=== PATIENT | female | born 1985 | race Caucasian/White ===

== ENCOUNTER → 2017-04-29 12:46 | Outpatient (CLI) | payer OTHER, SELFPAY ==
--- NOTE | 2017-04-29 12:52 | US_ITS ---
US OB /maternal detail: INDICATION: ITS.REASON: US OB Complete ORDERING PHYSICIAN: Td Mosqueda MD PATIENT AGE: 32 years TECHNIQUE: ultrasound transabdominal scanning. COMPARISON: No previous relevant studies. FINDINGS: Single viable intrauterine gestation. breech position. Placenta: posterior placenta grade 1. Placenta previa is present. There is some decreased echogenicity along the lower aspect of the placenta and may be related to maternal ortega not demonstrated on the endovaginal exam There is adequate amount fluid. The cervix appears satisfactory. Closed and measuring 4 cm in length. Complete survey performed and was unremarkable on the submitted images as in PACS. No discrete anomalies identified on survey imaging by technologist. Active fetus. Three-vessel cord with satisfactory umbilical cord insertion. 4- chamber heart noted. Survey of brain & ventricles. Face and neck survey unremarkable. Diaphragm and chest views unremarkable. Abdomen: Both kidneys noted and unremarkable. Stomach noted and satisfactory. Spine: Survey of the spine satisfactory with no anomalies identified nor imaged. Both arms and legs noted. Amniotic Fluid: Adequate. Maternal adnexa: No significant findings. Measurements: Average ultrasound age 21w0d. Gestational Age 20w3d. Estimated due date by ultrasound age 0709/09/2017. Estimated weight 421 grams. This is 91 percentile according to last menstrual period BPD = 20w2d OFD = 21w4d HC = 20w2d AC = 22w4d FL = 20w4d Heart Rate = 135 Cerebellum = 22w1d Humerus = 20w4d HC/AC is 1.01 (1.09-1.26). CI is 72% (70-86%). FL/BPD is 72%. FL/AC is 19%. IMPRESSION: There is a single live fetus in the breech presentation with average ultrasound age of 21 weeks and 0 days with an estimated due date of 09/09/2017. No obvious anomalies are evident. The fetus was active. There is posterior placenta with placenta previa.
== END ==
PROVIDERS: PCP Internal Medicine Adolescent Medicine; Visit Provider Nurse Practitioner Obstetrics & Gynecology
DX: Z36.0 Encounter for antenatal screening for chromosomal anomalies (principal)
CPT/HCPCS: 76811; 76830

== ENCOUNTER → 2017-07-30 09:50 | Outpatient (CLI) | payer OTHER, SELFPAY ==
--- NOTE | 2017-07-30 | US_ITS ---
US OB biophysical profile, US OB transvaginal, US OB follow up, US SD Ratio umbilcal artery: Indication: Large for gestational age, follow-up placenta previa ITS.REASON: US OB BPP Growth- LGA ORDERING PHYSICIAN: Harriet Cosme MD PATIENT AGE: 32 years COMPARISON: 04/29/2017 FINDINGS: There is a single live fetus in this presentation. Placenta is posterior and grade 1. No previa evident. The following parameters are obtained: Average ultrasound age is 34w3d . Estimated due date by ultrasound is Due 09/07/2017. Estimated weight is 2526 g. This is 80 percentile based on estimated due date. BPD: 33w4d OFD: 35w3d HC: 34w1d AC: 35w3d FL: 34w4d heart rate: 126 bpm. HC/AC: 0.97 (0.96-1.11) Cephalic index: 76% (70-86%) FL/BPD: 81% (71-87%) FL/AC: 21% (20-24%) Amniotic fluid index: 12 cm Qualitative AFV: 2 breathing movements: 2 Gross body movements: 2 Tone: 2 Biophysical profile score: 8/8 Doppler evaluation of the umbilical artery: SD ratio: 2.4 Resistive index: 0.58 No obvious anomalies evident. Placenta: Posterior and grade 1. No previa. Endovaginal images are performed showing no evidence of previa Cervix: Appears closed and measures 4 cm IMPRESSION: Live intrauterine gestation with an average ultrasound age of 34 weeks 3 days in cephalic presentation. No obvious anomalies. No previa evident. Biophysical profile is 8 of 8. Umbilical artery Doppler evaluation unremarkable
== END ==
PROVIDERS: PCP Internal Medicine Adolescent Medicine; Visit Provider Obstetrics & Gynecology
DX: O44.00 Complete placenta previa NOS or without hemorrhage, unspecified trimester (principal); O36.63X0 Maternal care for excessive fetal growth, third trimester, not applicable or unspecified
CPT/HCPCS: 76816; 76819; 76820; 76830

== ENCOUNTER → 2017-08-12 16:51 | Outpatient (REF) | payer OTHER, SELFPAY | LOC: LAB 16:51 | PROVIDERS: Visit Provider Nurse Practitioner Obstetrics & Gynecology | DX: Z34.90 Encounter for supervision of normal pregnancy, unspecified, unspecified trimester (principal) | CPT/HCPCS: 86403 ==

== ENCOUNTER → 2017-08-28 14:47 | Outpatient (CLI) | payer OTHER, SELFPAY ==
--- NOTE | 2017-08-28 | US_ITS ---
US OB biophysical profile, US OB follow up, US SD Ratio umbilcal artery: Indication: Large for gestational age ITS.REASON: US OB- BPP Growth- LGA ORDERING PHYSICIAN: Td Mosqueda MD PATIENT AGE: 32 years FINDINGS: There is a single live fetus which started in cephalic presentation but distended in breech presentation. heart and body motion noted. Placenta is anterior and lateral and grade 1-2 The following parameters are obtained: Average ultrasound age is 38w4d. Estimated due date by ultrasound is 09/07/2017. Estimated weight is 3626 g. This is 87th percentile based on established due date of 09/13/2018 BPD: 38w0d OFD: OFD HC: 38w3d AC: 39w4d FL: 38w2d heart rate: 133 bpm. HC/AC: 0.94 (0.92-1.05) Cephalic index: 78% (70-86%) FL/BPD: 80% (71-87%) FL/AC: 21% (20-24%) Amniotic fluid index: 13 cm Qualitative AFV: 2 breathing movements: 2 Gross body movements: 2 Tone: 2 Biophysical profile score: 8/8 Doppler evaluation of the umbilical artery: SD ratio: 2.0 Resistive index: 0.5 No obvious anomalies evident. Placenta: Placenta ANT/LAT Grade 1-2 Cervix: Appears closed and measures 3.5 cm IMPRESSION: Single live fetus with an average ultrasound age of 38 weeks and 4 days. Estimated weight is 3626 g which is 87 percentile based on established due date of 09/13/2018. movement and breathing movement noted Biophysical profile was 8 of 8 with average amniotic fluid volume an unremarkable umbilical artery evaluation
== END ==
PROVIDERS: PCP Internal Medicine Adolescent Medicine; Visit Provider Nurse Practitioner Obstetrics & Gynecology
DX: O36.63X0 Maternal care for excessive fetal growth, third trimester, not applicable or unspecified (principal)
CPT/HCPCS: 76816; 76819; 76820

== ENCOUNTER 2017-09-05 11:28 | Inpatient (IN) ==
--- NOTE | 2017-09-05 12:43 | History & Physical Report ---
OB - H&P: HPI Antepartum - History of Present Illness Chief complaint: Ruptured membranes at term, large for gestational age History of present illness: She is a 32-year-old 2 para 1 at 39+ weeks gestational age. She was seen in consultation this week with [facility] for an extremely large for gestational age . They had suggested that she has a section given the fact that the baby was so large and the head was not engaged in the pelvis. After having discussed the risks and benefits we elected to perform a repeat lower segment transverse section. This was scheduled for next week but she ruptured her membranes this morning. - History of Present Criteria for establishing EDC:: LMP confirmed by 1st trimester US care: good care Ultrasounds: normal 1st trimester US, normal mid trimester US Obstetrical complications: none Medical complications: none [facility] History I have reviewed the patient's past medical history: Yes Medical History: Denies:: Anxiety, Depression, Diabetes Mellitus Type 1, Hyperlipidemia, Hypertension, Migraine Other Surgeries: Yes: No Previous Surgery Amputation: No Fractures: No - *Social History Smoking Status: Never smoker Alcohol Intake: never Substance Use Type: denies use Occupational Status: employed - Psychiatric History Pschychiatric History:: Denies:: Anxiety, Depression *Family Hx:: No significant family history RADIOLOGY DIRECTOR history: Additional RADIOLOGY DIRECTOR History Review of Systems - Review of Systems Review of systems:: pertinent systems reviewed and negative unless documented below Meds Home Medications Medication Instructions Recorded Confirmed Type 1 tab PO QDAY 02/19/17 History vitamin,calcium,gcdmibpr-cizb-exeie acid tablet Allergies Allergy/AdvReac Type Severity Reaction Status Date / Time No Known Allergies Allergy Verified 08/25/17 13:33 OB - H&P: Exam - Constitutional no acute distress - Routine HEENT Exam Head: Present: normocephalic - Routine Respiratory Exam Comments: Normal breath sounds - Routine Cardiovascular Exam Present: RRR - Routine Abdominal Exam Present: soft OB - A/P Antepartum (1) Large for gestational age fetus affecting mother, antepartum, third trimester, single gestation Current visit: Yes Status: Acute (2) High head at term with problem Current visit: Yes Status: Acute - Additional Plan Planning to breastfeed?: Yes Plan: other Additional Information:: She has an extremely large for gestational age . The head is high at term. After having discussed the risks and benefits as well as consulting [facility] we have agreed that she should have a section. The risks and benefits of surgery were discussed with the patient. She has ruptured membranes so we will go ahead with a section this afternoon.
[2017-09-05 14:03] LABS: Basophils % 0.2 % (0.1-2.0); Eosinophils # 0.2 K/mm3 (0.0-0.4); Eosinophils % 1.5 % (0.1-12.0); Hematocrit 41.1 % (37.0-47.0); Hemoglobin 13.4 g/dL (12.2-16.2); Lymphocytes # 2.6 K/mm3 (0.7-4.5); Lymphocytes % 17.1 K/mm3 (10-50); Mean Corpuscular HGB Conc 32.5 g/dL (31.8-35.4); Mean Corpuscular Hemoglobin 29.2 pg (27.0-31.2); Mean Corpuscular Volume 89.8 fl (81-99); Mean Platelet Volume 8.4 fl (7.4-10.4); Monocytes # 0.6 K/mm3 (0.1-1.0); Monocytes % 4.2 % (1.7-9.3); Neutrophils # 11.5 K/mm3 (1.8-7.8); Neutrophils % 76.9 % (37.0-80.0); Platelet Count 187 K/mm3 (142-424); Red Blood Count 4.57 M/mm3 (4.20-5.40); Red Cell Distribution Width 13.1 % (11.5-17.5)
[2017-09-05 15:30] LABS: Lymphocytes % 17 % (10-50); Monocytes % 5 % (2-9); Neutrophils % 78 % (42-76); Total Cells Counted 100
--- NOTE | 2017-09-05 16:38 | Operative Note ---
Date of procedure: 09/05/17 Pre-op Diagnosis:: , high head at term, spontaneous rupture of membranes, large for gestational infant Post-op Diagnosis:: , high head at term, large for gestational age , spontaneous rupture of membranes, nuchal cord 2. Procedure performed:: Primary lower segment transverse section Surgeon:: Td Mosqueda MD Wastewater Project Manager(s):: Dr. Fragoso SUPERVISOR OF WAY:: Eliezer Horton Anesthesia: spinal Estimated blood loss (mL): 600 Clinical Note:: She is a 32-year-old 2 para 1 who is 38 and 6 weeks gestational age. She spontaneously ruptured her membranes this morning. She has been seen at [facility] and it was found that she had an extremely large for gestational age with a head high at term. After having discussed the risks and benefits we elected to go ahead with a primary lower segment transverse section. Operative findings:: She delivered a liveborn male child at 4:02 PM in the afternoon of September 05, 2017. The baby had a nuchal cord 2 that was loose. He had Apgars of 9 at 1 and 9 at 5 minutes. PH is 7.34. His 9 lbs. 10 oz. and he was 20-1/2 inches long. Ovaries and tubes appeared normal. Operative note:: She was taken to the operating room where spinal anesthesia was found be adequate. She was prepped and draped in normal sterile fashion in the supine position with a leftward tilt. A Marmolejo catheter was in the bladder. A Pfannenstiel skin incision was made with knife then carried through to the underlying layer of fascia with cautery. The fascia was opened in the midline with cautery and extended laterally using Arzola scissors. Winslow clamps were applied to the superior aspect of the fascial incision which was tented up and the underlying rectus muscles dissected off using cautery. The Natasha clamps were then applied to the inferior aspect of the fascial incision which in a similar fashion was tented up and the underlying rectus muscles dissected off using cautery. The rectus muscles were then in the midline, the peritoneum identified, and entered sharply with Metzenbaum scissors. This incision was then extended superiorly and inferiorly with cautery. We had good visualization of the bladder inferiorly. The bladder peritoneum was then opened in the midline and extended laterally using Metzenbaum scissors. A bladder flap was created digitally. The lower blade of the [employer] was inserted so as to push the bladder out of the way. Transverse incision was made through the uterine muscle to the amnion. This incision was then extended laterally using fingers traction. The amnion was entered sharply with knife. The infant's head was then delivered atraumatically. There was a nuchal cord 2 that was easily reduced. This was followed by the anterior shoulder and the rest of the infant's body atraumatically. The oropharynx and nasopharynx were bulb suctioned. The infant was then handed off to Dr. Strauss who assigned Apgars of 9 at 1 minute and 9 at 5 minutes. We then obtained cord blood as well as cord pH. PH was 7.34. Using gentle traction on the cord and countertraction on the fundus I was able to easily deliver the placenta intact. It had a normal three-vessel cord. The uterus was then cleared of clots and debris and exteriorized from the abdominal cavity. The uterine incision was then closed using running 0 Vicryl suture in a locked fashion. A second layer of the same suture was used to imbricate the first layer. The bladder peritoneum was then closed using running 2-0 Vicryl suture in a locked fashion. The gutters and cul-de-sac were then cleared of clots and debris and the uterus was returned the abdominal cavity. Once again hemostasis was assured. The peritoneum was grasped with Mariya clamps and closed using running 2-0 Vicryl suture. The rectus muscles were then reapproximated using running 0 Vicryl suture. The fascia was closed using running #1 Vicryl suture. The subcutaneous tissues were then irrigated with warm water followed by closure Haja's fascia using running 2-0 Monocryl suture. The skin was closed with cesar. The skin was then cleaned with Hibiclens. Sterile dressings were applied. She tolerated the procedure well and was taken to the recovery room in excellent condition. All sponges, instrument and needle counts were correct. Estimate a blood loss was approximately 600 mL. Condition: stable Disposition: PACU Specimens:: Products of conception Complications:: None
--- NOTE | 2017-09-05 16:43 | Progress Note ---
[facility] Anesthesia Record Part II Discharge Time: 17:10 Destination: Obstetric PACU nurse assessment reviewed?: Yes Patient Condition:: Good Anesthesia Complications:: None
--- NOTE | 2017-09-05 16:43 | Progress Note ---
[facility] Anesthesia Record Part I Intake, IV Amount: 2,000 Estimated blood loss (mL): 600 Urine output (mL): 450 Blood Pressure: 117/73 SaO2: 95 Pulse Rate: 89 Respiratory Rate: 16 Temperature: 98.6 F Patient is:: Awake, Stable Stable to PACU at:: 16:40
[2017-09-05 19:32] LABS: Microscopic, Urine URINE MICROSCOPIC (MICROSCOPIC)
[2017-09-05 19:33] LABS: Appearance,Urine CLEAR (Clear); Bilirubin,Urine Negative (Negative); Blood, Urine Negative (Negative); Color,Urine YELLOW (Yellow); Glucose,Urine (UA) Negative (Negative); Ketones,Urine Negative (Negative); Leukocyte Esterase,Urine Negative (Negative); PH,Urine 6.5 (5.0-8.5); Protein,Urine Negative (Negative); Urobilinogen,Urine 0.2 EU/dl (0.2)
[2017-09-05 19:51] LABS: RBC,Urine Occasional #/hpf (0-3); WBC,Urine Occasional #/hpf (0-3)
[2017-09-06 06:27] LABS: Hematocrit 33.9 % (37.0-47.0)
--- NOTE | 2017-09-06 10:59 | Progress Note ---
Internal Medicine - PN: Subj *Date: 09/06/17 *Time: 10:58 Interval history: She is doing well this morning. She has what sounds like a spinal headache. She has a headache when she sits up and then when she lays flat the headache seems to go away. She does have some nausea associated with this. Exam Vital signs and Labs for Last 24 Hours: Temp Pulse Resp BP Pulse Ox 98.6 F 76 18 120/73 99 09/05/17 17:20 09/05/17 17:20 09/05/17 17:20 09/05/17 17:20 09/05/17 17:20 Laboratory Results - last 24 hr 09/05/17 13:35: WBC 15.0 H, RBC 4.57, Hgb 13.4, Hct 41.1, MCV 89.8, MCH 29.2, MCHC 32.5, RDW 13.1, Plt Count 187, MPV 8.4, Neut % (Auto) 76.9, Lymph % (Auto) 17.1, [place] % (Auto) 4.2, Eos % (Auto) 1.5, Baso % (Auto) 0.2, Neut # (Auto) 11.5 H, Lymph # (Auto) 2.6, [place] # (Auto) 0.6, Eos # (Auto) 0.2, Baso # (Auto) 0.0, Total Counted 100, Neutrophils % (Manual) 78 H, Lymphocytes % (Manual) 17, Monocytes % (Manual) 5, Platelet Estimate Normal 09/05/17 13:35: Blood Type A Positive, Antibody Screen Negative 09/05/17 14:30: Urine Color Yellow, Urine Appearance Clear, Urine pH 6.5, Ur Specific [place] 1.010, Urine Protein Negative, Urine Glucose (UA) Negative, Urine Ketones Negative, Urine Blood Negative, Urine Nitrate Negative, Urine Bilirubin Negative, Urine Urobilinogen 0.2, Ur Leukocyte Esterase Negative, Urine RBC Occasional, Urine WBC Occasional, Ur Squamous Epith Cells None, Urine Bacteria None 09/05/17 16:22: Cord ABG pH 7.39 09/06/17 06:05: Hgb 12.0 L D, Hct 33.9 L I & O for Last 24 hours: Intake & Output 09/03/17 09/04/17 09/05/17 09/06/17 11:59 11:59 11:59 11:59 Intake Total 1999 Balance 1999 Weight 205 lb - Constitutional no acute distress Assessment and Plan (1) Large for gestational age fetus affecting mother, antepartum, third trimester, single gestation Current visit: Yes Status: Acute Category: Medical Code(s): O36.63X0 - Maternal care for excessive growth, third trimester, not applicable or unspecified (2) High head at term with problem Current visit: Yes Status: Acute Category: Medical Code(s): O32.4XX0 - Maternal care for high head at term, not applicable or unspecified - Assessment and plan all Dx Assessment and Plan for all problems:: She has what sounds like a spinal headache. If she continues to have headache after drinking caffeine throughout the day. We may consider blood patch. She will be discharged home in 48 hours.
--- NOTE | 2017-09-06 11:56 | Pharmacy Consult Notes ---
[facility] Pharmacy VTE Monitoring - Patient Demographics Admission date: 09/05/17 Report Date: 09/06/17 Time: 11:55 Allergies/Adverse Reactions: Patient Allergies No Known Allergies Allergy (Verified 08/25/17 13:33) Height: 1.6 m Weight: 92.986 kg Patient Problems: Current Active Problems Large for gestational age fetus affecting mother, antepartum, third trimester, single gestation (Acute) High head at term with problem (Acute) - VTE Risk Labs: VTE Related Lab Results Hgb 12.0 g/dL (12.2-16.2) L D 09/06/17 06:05 Hct 33.9 % (37.0-47.0) L 09/06/17 06:05 Plt Count 187 K/mm3 (142-424) 09/05/17 13:35 - Prophylaxis VTE Prophylaxis Ordered?: Yes Types of VTE Prophylaxis: IPCS Knee High Location of Applied Device: Bilateral Lower Extremeties - VTE Diagnosis Confirmed Treatment or plan recommended: Continue Current Treatment
--- NOTE | 2017-09-07 08:05 | Progress Note ---
Internal Medicine - PN: Subj *Date: 09/07/17 *Time: 08:04 Interval history: She is doing much better today. She had a spinal headache yesterday and has received a blood patch. She is eating and drinking and ablating. Her headache has completely resolved. Exam Vital signs and Labs for Last 24 Hours: Temp Pulse Resp BP Pulse Ox 98.2 F 75 18 99/50 98 09/06/17 08:00 09/06/17 08:00 09/06/17 08:00 09/06/17 08:00 09/06/17 08:00 I & O for Last 24 hours: Intake & Output 09/04/17 09/05/17 09/06/17 09/07/17 11:59 11:59 11:59 11:59 Intake Total 1999 Balance 1999 Weight 205 lb - Constitutional no acute distress Assessment and Plan (1) Large for gestational age fetus affecting mother, antepartum, third trimester, single gestation Current visit: Yes Status: Acute Category: Medical Code(s): O36.63X0 - Maternal care for excessive growth, third trimester, not applicable or unspecified (2) High head at term with problem Current visit: Yes Status: Acute Category: Medical Code(s): O32.4XX0 - Maternal care for high head at term, not applicable or unspecified - Assessment and plan all Dx Assessment and Plan for all problems:: She continues to do very well. We will plan to send her home tomorrow.
--- NOTE | 2017-09-07 22:16 | Discharge Summary ---
General - General Admission date:: 09/05/17 Discharge date: 09/07/17 HPI HPI: She is a 32-year-old 2 para 1 who is 39+ weeks gestational age. She had a large for gestational age infant as well as a high head at term. I had her seen at [facility] in consultation and after having discussed the risks and benefits we elected to go ahead with a primary lower segment section as result of her large infant. Hospital Course Hospital Course: On September 05, 2017 she underwent a primary lower segment transverse section and delivered a liveborn male child weighing 9 lbs. 10 oz. at 4:07 PM. Baby had Apgars of 9 at 1 and 9 at 5 minutes. She has done well and has remained afebrile throughout her hospitalization. She is eating and drinking and ambulate in. She is breast- feeding. She has a positive blood, she is rubella immune and was group streptococcus negative. Her baby has been having some jerky movements not quite enough to call it a seizure but the baby is going to be transferred to [facility] for further investigation. As result of that we are sending her home one day early. She is discharged home to follow-up with me in approximately 2 weeks time. She has had her cesar removed and Steri-Strips wide. She will follow-up with me in approximately 2 weeks time. She was given a prescription for Percocet 5/325 , 30 tablets and she will continue with her vitamins and iron. Objective Vital signs: Temp Pulse Resp BP Pulse Ox 98.0 F 85 16 117/60 97 09/07/17 08:00 09/07/17 08:00 09/07/17 08:00 09/07/17 08:00 09/07/17 08:00 no acute distress DS: Diagnosis - Discharge Diagnosis (1) Large for gestational age fetus affecting mother, antepartum, third trimester, single gestation Status: Acute (2) High head at term with problem Status: Acute Discharge Plan - Patient Discharge Instructions ACTIVITY: No heavy lifting DIET: continue same diet - Follow up Plan Disposition: Home, Self-Long Term Medications: Home Medications Medication Instructions Recorded Confirmed Type 1 tab PO DAILY 02/19/17 09/06/17 History vitamin,calcium,ctzumvcx-vcpr-jmgeb acid tablet Ferrous Sulfate 325 mg PO DAILY 09/05/17 09/05/17 History Prescriptions/Medication Reconciliation: Continue vitamin,calcium,obokieoe-aqrf-ovarh acid tablet 1 tab PO DAILY Ferrous Sulfate 325 mg PO DAILY
== END 2017-09-07 23:40 | disposition home or self-care (01) ==
LOC: OBOUT 11:28 → OB 11:31 → UNDODISIN 09-07 23:40
PROVIDERS: ADMIT Nurse Practitioner Obstetrics & Gynecology; ATTEND Nurse Practitioner Obstetrics & Gynecology